=== PATIENT | male | born 1995 | race Caucasian/White ===

== ENCOUNTER → 2021-03-10 | Outpatient (CLI) | payer OTHER ==
[2021-03-10 16:13] LABS: HEMATOCRIT 44.6 % (42.0-52.0); HEMOGLOBIN 14.7 g/dl (13.5-17.5); MEAN CORPUSCULAR HEMOGLOBIN 30.4 pg (27.0-33.0); MEAN CORPUSCULAR VOLUME 92.1 fl (80.0-96.0); PLATELET COUNT, AUTOMATED 231 10^3/uL (150-450); RED BLOOD COUNT 4.84 10^6/uL (4.30-6.10); WHITE BLOOD COUNT 6.4 10^3/uL (4.0-10.0)
[2021-03-10 16:45] LABS: ALBUMIN 3.8 GM/DL (3.2-5.2); ALT/SGPT 27 U/L (12-78); BILIRUBIN,DIRECT 0.2 MG/DL (0.0-0.2); BILIRUBIN,TOTAL 0.7 MG/DL (0.2-1.0); FREE T4 0.96 NG/DL (0.76-1.46); THYROID STIMULATING HORMONE 0.443 uIU/ML (0.358-3.740); TOTAL PROTEIN 7.1 GM/DL (6.4-8.2)
[2021-03-10 16:58] LABS: LUTEINIZING HORMONE 5.2 mIU/mL (1.5-9.3); PROGESTERONE 0.54 NG/ML (0.28-1.22); PROLACTIN 5.6 NG/ML (2.1-17.7)
[2021-03-10 16:59] LABS: ESTRADIOL 48.6 PG/ML (<39.8); FOLLICLE STIMULATING HORMONE 0.8 mIU/mL (1.4-18.1)
[2021-03-10 20:49] LABS: BLOOD UREA NITROGEN 20 MG/DL (7-18); CALCIUM LEVEL 8.8 MG/DL (8.5-10.1); CARBON DIOXIDE LEVEL 30 MEQ/L (21-32); CHLORIDE LEVEL 107 MEQ/L (98-107); CREATININE FOR GFR 1.27 MG/DL (0.70-1.30); GLOMERULAR FILTRATION RATE > 60.0 (>60); GLUCOSE, FASTING 96 MG/DL (70-100); POTASSIUM SERUM 4.2 MEQ/L (3.5-5.1); SODIUM LEVEL 140 MEQ/L (136-145)
== END ==
LOC: M LAB 15:07
PROVIDERS: ATTEND Plastic Surgery Surgery of the Hand
DX: N62 Hypertrophy of breast (principal)

== ENCOUNTER → 2021-04-07 | Outpatient (CLI) | payer OTHER ==
--- NOTE | 2021-04-07 18:00 | REP ---
INDICATION: HYPERTROPHY OF BREAST. COMPARISON: None. TECHNIQUE: MLO and CC views bilateral breasts with tomosynthesis. FINDINGS: Mild retroareolar fibroglandular tissue is present bilaterally in a symmetrical pattern. There is no mass or architectural distortion. No clustered microcalcifications are seen. IMPRESSION: BIRADS/ACR category 2, benign. Findings compatible with gynecomastia. No mass or clustered microcalcifications. This mammogram was interpreted with the aid of an FDA-approved computer-aided detection system. The patient states she had a clinical breast exam in February 2021.. The patient letter being requested is M2. RECOMMENDATION: None. <Electronically signed by Lucas Nuno > 04/07/21 [id number]
== END ==
LOC: EDUNIT# 08:00 → M WHC 08:38
PROVIDERS: ATTEND Plastic Surgery Surgery of the Hand
DX: N62 Hypertrophy of breast (principal)
CPT/HCPCS: 77066; G0279

== ENCOUNTER → 2021-04-26 | Outpatient (CLI) | payer OTHER | LOC: M LAB 10:47 | PROVIDERS: ATTEND Internal Medicine Endocrinology, Diabetes & Metabolism | DX: N62 Hypertrophy of breast (principal) ==

== ENCOUNTER 2021-07-19 13:38 | Emergency (ER) | payer OTHER ==
[~2021-07-19] VITALS: Ht 162.6 cm; Wt 80.9 kg
[2021-07-19] MEDS ORDERED: NORCO, ANEXSIA 5/325MG TABLET (HYDROcodone/ACETAMINOPHEN) PO ONE (14:35)
[2021-07-19] MEDS ORDERED: HYDR-3713 PO (15:48)
[2021-07-19 16:11] VITALS: BP 137/89
== END 2021-07-19 16:12 | disposition home or self-care (01) ==
LOC: M ED 13:38
DX: S82.831A Other fracture of upper and lower end of right fibula, initial encounter for closed fracture (principal); S82.61XA Displaced fracture of lateral malleolus of right fibula, initial encounter for closed fracture; S82.54XA Nondisplaced fracture of medial malleolus of right tibia, initial encounter for closed fracture; W10.2XXA Fall (on)(from) incline, initial encounter; Y92.89 Other specified places as the place of occurrence of the external cause; Y93.89 Activity, other specified; Y99.1 Military activity

== ENCOUNTER 2021-07-25 08:44 | Day surgery (SDC) | payer OTHER ==
[~2021-07-25] VITALS: Ht 162.6 cm; Wt 80.6 kg
[~2021-07-25 08:44] MED LIST: HYDR-3713 PO; KETOROLAC 60MG 2ML VIAL As Ordered ONE; LIDOCAINE 1% MDV 20ML VIAL SQ PRN; LIDOCAINE 2% 100MG/5ML SDV (FOR ANES.) As Ordered ONE; LR 1,000 ML IV ONE; MIDAZOLAM INJ 2MG/2ML VIAL (J2250 PER 1MG) As Ordered ONE; ONDANSETRON 4MG/2ML VIAL As Ordered ONE; dexameTHASONE 4 MG/ML 1ML VIAL (J1100 PER 1MG) As Ordered ONE; fentaNYL 100 MCG/2 ML INJECTION As Ordered ONE; propofoL 200 MG/20 ML VIAL As Ordered ONE
[2021-07-25] MEDS ORDERED: TRANEXAMIC ACID 100 MG/ML 10ML VIAL As Ordered ONE (10:36)
[2021-07-25] MEDS ORDERED: ceFAZolin 2 GM/D5W 50 ML IV BAG (J0690 PER 500MG) As Ordered ONE (10:37)
[2021-07-25] MEDS ORDERED: dexameTHASONE 10MG/1ML VIAL PRES.FREE (J1100 PER 1MG) XX ONE (10:40)
[2021-07-25] MEDS ORDERED: LIDOCAINE 1% MDV 20ML VIAL XX ONE (10:40)
[2021-07-25] MEDS ORDERED: ROPIvacaine 0.5% 30ML INJECTION (J2795 PER 1MG) XX ONE (10:40)
[2021-07-25] MEDS: MIDAZOLAM INJ 2MG/2ML VIAL (J2250 PER 1MG) IV PRN ×2 (10:46→10:50)
[2021-07-25] MEDS: fentaNYL 100 MCG/2 ML INJECTION IV PRN ×2 (10:46→10:50)
[2021-07-25] MEDS ORDERED: ROCURONIUM BROMIDE 50 MG/5 ML VIAL As Ordered ONE (10:51)
[2021-07-25] MEDS ORDERED: ceFAZolin SOD 2 GM in IV 1 EA IV ONE (11:10)
[2021-07-25] MEDS ORDERED: VANCOMYCIN 1000MG/20ML VIAL As Ordered ONE ×2 (12:08→13:06)
[2021-07-25] MEDS ORDERED: ePHEDrine SULFATE 25 MG/5 ML(5MG/ML) SYRINGE As Ordered ONE (12:15)
[2021-07-25] MEDS ORDERED: PHENYLephrine 500MCG 5ML (100MCG/ML) SYRINGE As Ordered ONE (12:15)
[2021-07-25] MEDS ORDERED: DESFLURANE 240 ML INHALANT As Ordered ONE (14:42)
[2021-07-25] MEDS ORDERED: fentaNYL 100 MCG/2 ML INJECTION As Ordered ONE (15:00)
[2021-07-25] MEDS ORDERED: ACETAMINOPHEN 1000MG 100ML IV BTL (OFIRMEV) (J0131 PER 10MG) As Ordered ONE (15:13)
[2021-07-25] MEDS ORDERED: propofoL 200 MG/20 ML VIAL As Ordered ONE (15:26)
[2021-07-25] MEDS ORDERED: LR 1,000 ML IV SCH (16:15)
[2021-07-25] MEDS ORDERED: oxyCODONE 5MG TAB PO PRN (16:15)
[2021-07-25] MEDS ORDERED: ONDANSETRON 4MG/2ML VIAL IV PRN (16:15)
[2021-07-25] MEDS ORDERED: fentaNYL 100 MCG/2 ML INJECTION IV PRN (16:15)
[2021-07-25 17:31] VITALS: BP 121/67
== END 2021-07-25 17:55 | disposition home or self-care (01) ==
LOC: M SDC 08:44
PROVIDERS: ATTEND Orthopaedic Surgery
DX: S82.841A Displaced bimalleolar fracture of right lower leg, initial encounter for closed fracture (principal); W10.8XXA Fall (on) (from) other stairs and steps, initial encounter; Y92.138 Other place on military base as the place of occurrence of the external cause; Y93.01 Activity, walking, marching and hiking; Y99.1 Military activity; R06.83 Snoring; Z79.891 Long term (current) use of opiate analgesic
CPT/HCPCS: 27814; 76000; C1713; J0131; J0690; J1100; J1885; J2250; J2370; J2405; J3010; J3370

== ENCOUNTER 2021-10-11 06:20 | Observation (INO) | payer OTHER ==
[~2021-10-11] VITALS: Ht 170.2 cm; Wt 82.0 kg
[~2021-10-11 06:20] MED LIST changes: +ACET1TAB55; +ASPI81TA26; +CELE1CAP9; +DOCU100C16; +GABA-282; -KETOROLAC 60MG 2ML VIAL As Ordered ONE; -LIDOCAINE 2% 100MG/5ML SDV (FOR ANES.) As Ordered ONE; -MIDAZOLAM INJ 2MG/2ML VIAL (J2250 PER 1MG) As Ordered ONE; +ONDA-83; -ONDANSETRON 4MG/2ML VIAL As Ordered ONE; +OXYC-517; +ceFAZolin SOD 2 GM in IV 1 EA IV ONE; -dexameTHASONE 4 MG/ML 1ML VIAL (J1100 PER 1MG) As Ordered ONE; -fentaNYL 100 MCG/2 ML INJECTION As Ordered ONE; -propofoL 200 MG/20 ML VIAL As Ordered ONE
[2021-10-11] MEDS ORDERED: LIDOCAINE 1% MDV 20ML VIAL As Ordered ONE (06:46)
[2021-10-11] MEDS ORDERED: BUPIVACAINE LIPOSOME/PF 1.3% 20ML VIAL (13.3MG/ML)(EXPAREL) As Ordered ONE (06:46)
[2021-10-11] MEDS ORDERED: EPINEPHrine INJ 1 MG/ML 1ML AMP As Ordered ONE (06:46)
[2021-10-11] MEDS ORDERED: GENTAMICIN SULF 80MG/2ML VIAL As Ordered ONE (06:46)
[2021-10-11 06:49] LABS: HEMATOCRIT 44.4 % (42.0-52.0); HEMOGLOBIN 14.8 g/dl (13.5-17.5); MEAN CORPUSCULAR HEMOGLOBIN 30.8 pg (27.0-33.0); MEAN CORPUSCULAR HGB CONC 33.3 g/dl (32.0-36.5); MEAN CORPUSCULAR VOLUME 92.5 fl (80.0-96.0); PLATELET COUNT, AUTOMATED 198 10^3/uL (150-450); WHITE BLOOD COUNT 4.6 10^3/uL (4.0-10.0)
[2021-10-11 06:59] LABS: INR 1.02; PROTHROMBIN TIME 13.8 SECONDS (12.7-14.5)
[2021-10-11 07:16] LABS: BLOOD UREA NITROGEN 17 MG/DL (7-18); CALCIUM LEVEL 8.8 MG/DL (8.5-10.1); CARBON DIOXIDE LEVEL 30 MEQ/L (21-32); CHLORIDE LEVEL 107 MEQ/L (98-107); CREATININE FOR GFR 1.19 MG/DL (0.70-1.30); GLOMERULAR FILTRATION RATE > 60.0 (>60); GLUCOSE, FASTING 101 MG/DL (70-100); POTASSIUM SERUM 3.9 MEQ/L (3.5-5.1); SODIUM LEVEL 140 MEQ/L (136-145)
[2021-10-11] MEDS ORDERED: propofoL 200 MG/20 ML VIAL As Ordered ONE (07:23)
[2021-10-11] MEDS ORDERED: LIDOCAINE 2% 100MG/5ML SDV (FOR ANES.) As Ordered ONE (07:23)
[2021-10-11] MEDS ORDERED: fentaNYL 250 MCG/5 ML INJECTION As Ordered ONE (07:23)
[2021-10-11] MEDS ORDERED: dexameTHASONE 4 MG/ML 1ML VIAL (J1100 PER 1MG) As Ordered ONE (07:23)
[2021-10-11] MEDS ORDERED: ONDANSETRON 4MG/2ML VIAL As Ordered ONE (07:23)
[2021-10-11] MEDS ORDERED: MIDAZOLAM INJ 2MG/2ML VIAL (J2250 PER 1MG) As Ordered ONE (07:24)
[2021-10-11] MEDS ORDERED: ROCURONIUM BROMIDE 50 MG/5 ML VIAL As Ordered ONE ×3 (07:44→09:18)
[2021-10-11] MEDS ORDERED: SEVOFLURANE INHAL SOLN 250 ML BTL As Ordered ONE (08:06)
[2021-10-11] MEDS ORDERED: ACETAMINOPHEN 1000MG 100ML IV BTL (OFIRMEV) (J0131 PER 10MG) As Ordered ONE (08:28)
[2021-10-11] MEDS ORDERED: PHENYLephrine 500MCG 5ML (100MCG/ML) SYRINGE As Ordered ONE (08:34)
[2021-10-11] MEDS ORDERED: SUGAMMADEX SODIUM 500 MG/5 ML VIAL (BRIDION) As Ordered ONE (08:37)
[2021-10-11] MEDS ORDERED: LACRILUBE (AKWA TEARS) OPHTH OINT 3.5 GM As Ordered ONE (08:37)
[2021-10-11] MEDS ORDERED: HYDROmorphone HCL 2MG/ML 1ML VIAL As Ordered ONE (08:38)
[2021-10-11] MEDS ORDERED: ePHEDrine SULFATE 25 MG/5 ML(5MG/ML) SYRINGE As Ordered ONE (08:51)
[2021-10-11] MEDS ORDERED: PERCOCET 5MG/325MG TAB PO PRN (11:10)
[2021-10-11] MEDS ORDERED: ACETAMINOPHEN TAB 650MG DOSE (2X325MG) PO PRN (11:10)
[2021-10-11] MEDS ORDERED: ONDANSETRON 4MG/2ML VIAL IV PRN ×2 (11:10→11:30)
[2021-10-11] MEDS ORDERED: MORPHINE 4 MG/ML 1ML VIAL/SYRINGE IV PRN (11:10)
[2021-10-11] MEDS ORDERED: fentaNYL 100 MCG/2 ML INJECTION IV PRN (11:30)
[2021-10-11] MEDS ORDERED: LR 1,000 ML IV SCH (11:30)
[2021-10-11] MEDS ORDERED: oxyCODONE 5MG TAB PO PRN (11:30)
[2021-10-11 12:00] VITALS: BP 125/86
[2021-10-11] MEDS: LR 1,000 ML IV SCH (12:05)
[2021-10-11 12:30] VITALS: BP 127/73
[2021-10-11 13:30] VITALS: BP 127/73
[2021-10-11 14:30] VITALS: BP 128/81
[2021-10-11 15:30] VITALS: BP 127/73
[2021-10-11 22:00] VITALS: BP 123/70
[2021-10-12] MEDS: LR 1,000 ML IV SCH ×2 (00:30→13:50)
[2021-10-12 02:00] VITALS: BP 124/68
[2021-10-12 06:00] VITALS: BP 115/64
[2021-10-12 10:13] VITALS: BP 128/73
[2021-10-12] MEDS ORDERED: PERCOCET PO (12:45)
== END 2021-10-12 13:30 | disposition home or self-care (01) ==
LOC: M SDC 06:20 → M MS5PR 06:21
PROVIDERS: ADMIT Surgery; ATTEND Plastic Surgery Surgery of the Hand
DX: N62 Hypertrophy of breast (principal)
CPT/HCPCS: 15877; 19300; 36415; 80048; 85027; 85610; 88300; 88305; C9290; J0131; J0171; J0690; J1100; J1170; J1580; J2250; J2370; J2405; J3010